=== PATIENT | male | born 1995 | race Caucasian/White ===

== ENCOUNTER 2023-06-14 16:39 | Emergency (ER) | payer BC ==
[~2023-06-14] VITALS: Ht 185.4 cm; Wt 177.8 kg
== END 2023-06-14 20:58 | disposition home or self-care (01) ==
LOC: ED 16:39
DX: S82.141A Displaced bicondylar fracture of right tibia, initial encounter for closed fracture (principal); W18.09XA Striking against other object with subsequent fall, initial encounter; Y93.89 Activity, other specified; Y92.34 Swimming pool (public) as the place of occurrence of the external cause; Y99.8 Other external cause status

== ENCOUNTER → 2023-07-16 | Outpatient (CLI) | payer BC | END | disposition home or self-care (01) | LOC: RAD 01:24 | PROVIDERS: ATTEND Orthopaedic Surgery | DX: S82.131D Displaced fracture of medial condyle of right tibia, subsequent encounter for closed fracture with routine healing (principal); M17.11 Unilateral primary osteoarthritis, right knee; X58.XXXD Exposure to other specified factors, subsequent encounter ==

== ENCOUNTER → 2023-08-01 | Outpatient (CLI) | payer BC | END | disposition home or self-care (01) | LOC: ORTHO 01:26 | PROVIDERS: ATTEND Orthopaedic Surgery | DX: S82.131D Displaced fracture of medial condyle of right tibia, subsequent encounter for closed fracture with routine healing (principal); X58.XXXD Exposure to other specified factors, subsequent encounter ==

== ENCOUNTER → 2023-08-08 | Outpatient (CLI) | payer BC | END | disposition home or self-care (01) | LOC: ORTHO 12:00 | PROVIDERS: ATTEND Orthopaedic Surgery | DX: S82.131D Displaced fracture of medial condyle of right tibia, subsequent encounter for closed fracture with routine healing (principal); X58.XXXD Exposure to other specified factors, subsequent encounter ==

== ENCOUNTER → 2023-09-08 | Outpatient (CLI) | payer BC | END | disposition home or self-care (01) | LOC: ORTHO 00:40 | PROVIDERS: ATTEND Orthopaedic Surgery | DX: S82.131D Displaced fracture of medial condyle of right tibia, subsequent encounter for closed fracture with routine healing (principal); X58.XXXD Exposure to other specified factors, subsequent encounter ==